=== PATIENT | female | born 1985 | race Caucasian/White ===

== ENCOUNTER 2016-09-15 09:45 | Emergency (ER) | payer MEDICAID, OTHER ==
[~2016-09-15] VITALS: Wt 85.0 kg
[~2016-09-15 09:45] MED LIST: AMO500 PO; CIPR500T4 PO; EXCEDRIN; HYDR-3498 PO; HYDR2TAB36 PO; METR500T PO; ONDA-43 PO; ONDA4TAB35 PO
[2016-09-15] MEDS ORDERED: ONDANSETRON (ODT) 4 MG TAB ODT STA (10:38)
--- NOTE | 2016-09-15 10:41 | ERD ---
ER Documentation Chief Complaint Date/Time DATE: 09/15/16 TIME: 10:39 Chief Complaint LEFT ANKLE PAIN, SWELLING/INJURY, HAPPENED 1 WEEK AGO HPI 31-year-old female presents with left medial ankle pain from an injury 2 weeks ago, radiating diffusely to the posterior aspect. She rates her pain a 10 out of 10, not improving with leftover [place] which she has been taking at home. Elevating and icing the area seems to help, however because of the swelling she is comes emergency department today, this is her first evaluation. She denies any fevers or chills with this. ROS All systems reviewed and are negative except as per history of present illness. Medications Home Meds Active Scripts Ibuprofen* (Motrin*) 600 Mg Tab, 600 MG PO Q6, #30 TAB Prov:HESHAM EVERETT PA-C 09/15/16 Hydrocodone/Acetaminophen ([place] 5-325 Tablet) 1 Each Tablet, 1 TAB PO Q6H Y for PAIN, #20 TAB Prov:HESHAM EVERETT PA-C 09/15/16 Ondansetron Hcl* (Zofran*) 4 Mg Tab, 4 MG PO Q6H Y for NAUSEA AND OR VOMITING, # 10 TAB Prov:JOBY CHU S. 12/14/15 Hydromorphone Hcl* (Dilaudid*) 2 Mg Tablet, 2 MG PO Q4H Y for PAIN, #14 TAB Prov:JOBY CHU S. 12/14/15 Ondansetron Hcl* (Zofran* ODT) 4 mg -ODT Tab.disper, 4 MG PO Q8 Y for NAUSEA AND /OR VOMITING, #30 TAB Prov:RAFAELA BENJAMIN NP 12/29/14 Hydrocodone Bit-Acetaminophen* ([place]*) 5-325 Mg Tab, 1 TAB PO Q6 Y for PAIN, # 20 TAB Prov:RAFAELA BENJAMIN NP 12/29/14 Metronidazole* (Flagyl*) 500 Mg Tablet, 500 MG PO TID for 10 Days, TAB Prov:RAFAELA BENJAMIN NP 12/29/14 Ciprofloxacin Hcl* (Ciprofloxacin Hcl*) 500 Mg Tablet, 500 MG PO BID for 10 Days , TAB Prov:RAFAELA BENJAMIN NP 12/29/14 Reported Medications Amoxicillin* (Amoxicillin*) Unknown Strength Cap, PO TID for 7 Days, CAP 12/29/14 [Excedrin] No Conflict Check 04/01/10 Allergies Allergies: Coded Allergies: No Known Drug Allergies (Verified Allergy, Mild, 10/03/13) PMhx/Soc History of Surgery: Yes (chelecystectomy, x 2 ) Anesthesia Reaction: No Hx Neurological Disorder: No Hx Respiratory Disorders: Yes (asthma, migraine) Hx Cardiac Disorders: No Hx Psychiatric Problems: No Hx Miscellaneous Medical Probl: No Hx Alcohol Use: Yes (occassional ) Hx Substance Use: No Hx Tobacco Use: Yes Smoking Status: Current every day smoker Physical Exam Vitals Vital Signs Date Time Temp Pulse Resp B/P Pulse Ox O2 Delivery O2 Flow Rate FiO2 09/15/16 09:49 97.6 97 18 123/81 99 Physical Exam General: Well-developed, well-nourished. The patient appears in no acute distress. HEENT: Head is normocephalic, atraumatic. No scleral icterus. Neck: Supple. Nontender. Lungs: Clear to auscultation. Normal air movement. Heart: Regular rate and rhythm. S1 and S2 are normal. No murmurs, gallops, or rubs. Abdomen: Nondistended. Extremities: Left medial foot, and ankle are diffusely tender with ecchymosis, she has bruising that goes to the posterior ankle, she is able to partially dorsiflex and flex her ankle. Pulses 2+ bilaterally. Louie intact. Neurologic: Alert and oriented 3. No focal deficits. Normal speech and gait. Skin: Normal turgor. No rash or lesions. Results 24 hrs Current Medications Medications (Trade) Dose Ordered Sig/Juanita Route PRN Reason Start Time Stop Time Status Last Admin Dose Admin Acetaminophen/ Hydrocodone Bitart ([place] (10/325)) 1 tab ONCE ONCE PO 09/15/16 11:00 09/15/16 11:01 DC 09/15/16 10:58 Ondansetron HCl (Zofran Odt) 4 mg ONCE STAT ODT 09/15/16 10:38 09/15/16 10:39 DC 09/15/16 10:58 Ibuprofen (Motrin) 800 mg ONCE ONCE PO 09/15/16 13:00 09/15/16 13:01 DIAGNOSTIC IMAGING REPORT Patient: JERICHO WOODS : 1985 Age: 31 Sex: F MR #: [id number] DOS: 09/15/16 1038 Ordering MD: HESHAM EVERETT PA-C Location: [facility] Room/Bed: PROCEDURE: XR Foot 3 Views. CLINICAL INDICATION: Left foot pain and trauma. TECHNIQUE: AP, oblique and lateral views of the left foot were obtained. The images were reviewed on a PACS workstation. COMPARISON: Ankle x-ray September 15, 2016 FINDINGS: Severely displaced fracture through the medial malleolus continues to be identified. The remaining osseous structures appear intact. No destructive bony lesions are identified. Interosseous spaces are normal. Soft tissues surrounding the foot appear unremarkable. IMPRESSION: Unchanged fracture through the medial malleolus of the ankle. No visualized additional traumatic injury. If there is high clinical suspicion for additional traumatic injury, further evaluation with CT should be considered. RPTAT: AA .Ghassan Hitchcock MD, MD Date Time Electronically viewed and signed by .Ghassan Hitchcock MD, on 09/15/2016 11:09 .P/ CC: HESHAM EVERETT PA-C DIAGNOSTIC IMAGING REPORT Patient: JERICHO WOODS : 1985 Age: 31 Sex: F MR #: [id number] DOS: 09/15/16 0958 Ordering MD: HESHAM EVERETT PA-C Location: [facility] Room/Bed: PROCEDURE: XR Ankle. CLINICAL INDICATION: Left ankle pain following injury TECHNIQUE: 3 views of the left ankle were performed. COMPARISON: None. FINDINGS: There is a fracture of the medial malleolus with medial displacement and rotation of the fracture fragment. The ankle mortise is intact. No periostitis or osteochondral lesion is identified. There is diffuse soft tissue edema. IMPRESSION: Fracture of the medial malleolus with medial displacement and rotation of the distal fracture fragment. RPTAT: HH .Pat Kerr MD, MD Date Time Electronically viewed and signed by .Pat Kerr MD, on 09/15/2016 10 :55 .G/ CC: HESHAM EVERETT PA-C Procedures/MDM ED course: Patient was given [place] 103 25 mg, Zofran 4 mg ODT. Patient's left ankle was placed in a posterior ankle splint. Splint Assessment : Neurovascularly intact post splint placement with good fit. She was advised to use crutches and remain nonweightbearing. Patient presents with old crutches which she feels comfortable using at this time. Medical decision making: This 31-year-old female presents with left medial ankle left foot injury, there is an avulsion fracture of the medial malleolus, she has inserted distally neurovascular intact and Achilles is intact. She was placed in a posterior ankle splint and was advised to follow-up with orthopedics in the next 1-2 days. The case was reviewed and discussed with Dr. Perry who agrees with the plan of care including labs, treatment, and advanced imaging as appropriate. Departure Diagnosis: Primary Impression: Ankle fracture, left Condition: Good HESHAM EVERETT PA-C Sep 15, 2016 10:41
--- NOTE | 2016-09-15 10:55 | RADRPT ---
PROCEDURE: XR Ankle. CLINICAL INDICATION: Left ankle pain following injury TECHNIQUE: 3 views of the left ankle were performed. COMPARISON: None. FINDINGS: There is a fracture of the medial malleolus with medial displacement and rotation of the fracture fr agment. The ankle mortise is intact. No periostitis or osteochondral lesion is identified. There i s diffuse soft tissue edema. IMPRESSION: Fracture of the medial malleolus with medial displacement and rotation of the distal fracture fragme nt. RPTAT: HH .Pat Kerr MD, MD Date Time Electronically viewed and signed by .Pat Kerr MD, on 09/15/2016 10:55 .G/
[2016-09-15] MEDS ORDERED: HYDROCODONE/APAP (10/325) TAB PO ONE (11:00)
--- NOTE | 2016-09-15 11:09 | RADRPT ---
PROCEDURE: XR Foot 3 Views. CLINICAL INDICATION: Left foot pain and trauma. TECHNIQUE: AP, oblique and lateral views of the left foot were obtained. The images were reviewed on a PACS workstation. COMPARISON: Ankle x-ray September 15, 2016 FINDINGS: Severely displaced fracture through the medial malleolus continues to be identified. The remaining osseous structures appear intact. No destructive bony lesions are identified. Interosseous spaces are normal. Soft tissues surrounding the foot appear unremarkable. IMPRESSION: Unchanged fracture through the medial malleolus of the ankle. No visualized additional traumatic injury. If there is high clinical suspicion for additional traumatic injury, further evaluation with CT shou ld be considered. RPTAT: AA .Ghassan Hitchcock MD, MD Date Time Electronically viewed and signed by .Ghassan Hitchcock MD, on 09/15/2016 11:09 .P/
[2016-09-15] MEDS ORDERED: IBUP-1542 PO (11:42)
[2016-09-15] MEDS ORDERED: HYDR-906 PO (11:42)
[2016-09-15] MEDS ORDERED: IBUPROFEN 800 MG TAB PO ONE (13:00)
== END 2016-09-15 13:56 | disposition home or self-care (01) ==
LOC: FTE 09:45
DX: S82.52XA Displaced fracture of medial malleolus of left tibia, initial encounter for closed fracture (principal); J45.909 Unspecified asthma, uncomplicated; F17.210 Nicotine dependence, cigarettes, uncomplicated; X58.XXXA Exposure to other specified factors, initial encounter; Y92.9 Unspecified place or not applicable
CPT/HCPCS: 29515; 73610; 73630; Z7502; Z7610

== ENCOUNTER 2016-11-30 08:42 | Emergency (ER) | payer OTHER ==
[~2016-11-30] VITALS: Ht 149.9 cm; Wt 86.0 kg
[~2016-11-30 08:42] MED LIST changes: -AMO500 PO; +AMOX500C2 PO; +HYDR-906 PO; +IBUP-1542 PO
[2016-11-30 08:44] VITALS: Ht 149.9 cm; Wt 86.0 kg
[2016-11-30] MEDS ORDERED: CEPH-443 PO (09:15)
[2016-11-30] MEDS ORDERED: SULF1TAB31 PO (09:15)
--- NOTE | 2016-11-30 12:35 | ERD ---
ER Documentation Chief Complaint Chief Complaint LT AC ABSCESS FROM DRUG ABUSE, LT ANKLE PAIN HPI This is a 31 year old female,with past medical history for drug abuse, presenting to ER for abscess to left inner elbow for 2 days. Patient states she injected heroin and meth into her left arm 2 days ago. Patient is now having pain and swelling to left antecubital area. Patient denies any drainage. No redness or warmth. No fevers or chills. Patient also has an old medial malleolar fracture from September and continues to have pain. No reinjury or trauma to area. No numbness or tingling. No loss of sensation. No weakness. Patient states she has not been to see her primary care provider or practice support specialist. Patient lost CD with images of ankle and foot x-rays. Patient requesting copy of CD and orthopedic referral. ROS All systems reviewed and are negative except as per history of present illness. Medications Home Meds Active Scripts Cephalexin* (Keflex*) 500 Mg Capsule, 500 MG PO QID for 5 Days, CAP Prov:JOHAN TERAN NP 11/30/16 Sulfamethoxazole/Trimethoprim* (Bactrim Ds* Tablet) 1 Each Tablet, 1 TAB PO BID , #14 TAB Prov:JOHAN TERAN NP 11/30/16 Ibuprofen* (Motrin*) 600 Mg Tab, 600 MG PO Q6, #30 TAB Prov:HESHAM EVERETT PA-C 09/15/16 Hydrocodone/Acetaminophen ([place] 5-325 Tablet) 1 Each Tablet, 1 TAB PO Q6H Y for PAIN, #20 TAB Prov:HESHAM EVERETT PA-C 09/15/16 Ondansetron Hcl* (Zofran*) 4 Mg Tab, 4 MG PO Q6H Y for NAUSEA AND OR VOMITING, # 10 TAB Prov:JOBY CHU 12/14/15 Hydromorphone Hcl* (Dilaudid*) 2 Mg Tablet, 2 MG PO Q4H Y for PAIN, #14 TAB Prov:JOBY CHU 12/14/15 Ondansetron Hcl* (Zofran* ODT) 4 mg -ODT Tab.disper, 4 MG PO Q8 Y for NAUSEA AND /OR VOMITING, #30 TAB Prov:RAFAELA BENJAMIN NP 12/29/14 Hydrocodone Bit-Acetaminophen* ([place]*) 5-325 Mg Tab, 1 TAB PO Q6 Y for PAIN, # 20 TAB Prov:RAFAELA BENJAMIN NP 12/29/14 Metronidazole* (Flagyl*) 500 Mg Tablet, 500 MG PO TID for 10 Days, TAB Prov:RAFAELA BENJAMIN NP 12/29/14 Ciprofloxacin Hcl* (Ciprofloxacin Hcl*) 500 Mg Tablet, 500 MG PO BID for 10 Days , TAB Prov:RAFAELA BENJAMIN BOARD LAYER 12/29/14 Reported Medications Amoxicillin* (Amoxicillin*) Unknown Strength Cap, PO TID for 7 Days, CAP 12/29/14 [Excedrin] No Conflict Check 04/01/10 Allergies Allergies: Coded Allergies: No Known Drug Allergies (Verified Allergy, Mild, 10/03/13) PMhx/Soc History of Surgery: Yes (chelecystectomy, x 2 ) Anesthesia Reaction: No Hx Neurological Disorder: No Hx Respiratory Disorders: Yes (asthma, migraine) Hx Cardiac Disorders: No Hx Psychiatric Problems: No Hx Miscellaneous Medical Probl: No Hx Alcohol Use: Yes (occassional ) Hx Substance Use: Yes (crystal meth) Hx Tobacco Use: Yes Smoking Status: Light tobacco smoker Physical Exam Vitals Vital Signs Date Time Temp Pulse Resp B/P Pulse Ox O2 Delivery O2 Flow Rate FiO2 11/30/16 08:44 97.6 98 18 121/69 99 Physical Exam Const: Alert, crying Head: Atraumatic Eyes: Normal Conjunctiva ENT: Normal External Ears, Nose and Mouth. Neck: Full range of motion..~ No meningismus. Resp: Clear to auscultation bilaterally Cardio: Regular rate and rhythm, no murmurs Abd: Soft, non tender, non distended. Normal bowel sounds Skin: 1cm x 1cm raised lesion to left antecubital region. No lymphatic streaking. no drainage. no fluctuance. No surrounding erythema or warmth. Back: No midline or flank tenderness Ext: No cyanosis, or edema Neur: Awake and alert Psych: Normal Mood and Affect Procedures/MDM MDM: This is a 31-year-old female presenting to emerge department for abscess to left antecubital region 2 days. There is no fluctuance on physical exam. No surrounding erythema or warmth. No lymphatic streaking. No indication to perform incision and drainage. Patient is neurovascularly intact. Sensation is fully intact. Patient will be given prescription for Bactrim and Keflex. Patient also requesting a CD images of x-rays done in 09/2016. Patient is appropriate for outpatient management only given prescription for Bactrim and Keflex. Patient also provided with CD images and report of ankle and foot x-rays from 09/2016. Instructed patient to follow-up with orthopedic physician. Instructed patient to return to the ED in 2 days for wound check. Resources provided. Return to ED for any high fever, chest pain, difficulty breathing, shortness breath, wheezing, vomiting, diarrhea, abdominal pain or any new or worsening symptoms. Patient verbalizes understanding. All questions answered at discharge. Disclaimer: Inadvertent spelling and grammatical errors are likely due to EHR/ dictation software use and do not reflect on the overall quality of patient care. Also, please note that the electronic time recorded on this note does not necessarily reflect the actual time of the patient encounter. Departure Diagnosis: Primary Impression: Abscess Condition: Stable Patient Instructions: Abscess, Antiobiotic Treatment Only Referrals: [facility] YOU HAVE RECEIVED A MEDICAL SCREENING EXAM AND THE RESULTS INDICATE THAT YOU DO NOT HAVE A CONDITION THAT REQUIRES URGENT TREATMENT IN THE EMERGENCY DEPARTMENT. FURTHER EVALUATION AND TREATMENT OF YOUR CONDITION CAN WAIT UNTIL YOU ARE SEEN IN YOUR DOCTORS OFFICE WITHIN THE NEXT 1-2 DAYS. IT IS YOUR RESPONSIBILITY TO MAKE AN APPOINTMENT FOR FOLOW-UP CARE. IF YOU HAVE A PRIMARY DOCTOR --you should call your primary doctor and schedule an appointment IF YOU DO NOT HAVE A PRIMARY DOCTOR YOU CAN CALL OUR PHYSICIAN REFERRAL HOTLINE AT IF YOU CAN NOT AFFORD TO SEE A PHYSICIAN YOU CAN CHOSE FROM THE FOLLOWING [facility] [address] [facility] [address] [facility]. [facility] [address] [facility] [address] [facility] [address] [facility]. [facility]. [address] [facility] YOU HAVE RECEIVED A MEDICAL SCREENING EXAM AND THE RESULTS INDICATE THAT YOU DO NOT HAVE A CONDITION THAT REQUIRES URGENT TREATMENT IN THE EMERGENCY DEPARTMENT. FURTHER EVALUATION AND TREATMENT OF YOUR CONDITION CAN WAIT UNTIL YOU ARE SEEN IN YOUR DOCTORS OFFICE WITHIN THE NEXT 1-2 DAYS. IT IS YOUR RESPONSIBILITY TO MAKE AN APPOINTMENT FOR FOLOW-UP CARE. IF YOU HAVE A PRIMARY DOCTOR --you should call your primary doctor and schedule and appointment IF YOU DO NOT HAVE A PRIMARY DOCTOR YOU CAN CALL OUR PHYSICIAN REFERRAL HOTLINE AT . IF YOU CAN NOT AFFORD TO SEE A PHYSICIAN YOU CAN CHOSE FROM THE FOLLOWING [facility] INSTITUTIONS: [facility] [address] [place] [address] [facility] [address] [place] [address] [facility] + [facility] [address] [place] [address] [facility] 7 a.m.- 11 p.m. Every Day of the Week NO APPOINTMENT OR AUTHORIZATION NEEDED Additional Instructions: Return to ED in 2 days for wound check. Use warm compress to left arm for 20 min 3-4 times per day. Return to ED for any high fever, chest pain, difficulty breathing, shortness breath, wheezing, vomiting, diarrhea, abdominal pain or any new or worsening symptoms. Call your primary care doctor TOMORROW for an appointment during the next 2-3 days.See the doctor sooner or return here if your condition worsens before your appointment time. JOHAN TERAN NP Nov 30, 2016 12:35
== END 2016-11-30 10:06 | disposition home or self-care (01) ==
LOC: FTE 08:42
DX: L02.414 Cutaneous abscess of left upper limb (principal); J45.909 Unspecified asthma, uncomplicated; F17.210 Nicotine dependence, cigarettes, uncomplicated
CPT/HCPCS: 99284

== ENCOUNTER 2017-01-03 11:14 | Emergency (ER) | payer OTHER ==
[~2017-01-03] VITALS: Ht 149.9 cm; Wt 86.0 kg
[~2017-01-03 11:14] MED LIST changes: +CEPH-443 PO; +SULF1TAB31 PO
[2017-01-03 11:27] VITALS: Ht 149.9 cm; Wt 86.0 kg
[2017-01-03] MEDS ORDERED: ALBUTEROL 0.083% (NEB) 2.5 MG/3 ML AMP HHN STA (12:33)
--- NOTE | 2017-01-03 12:44 | ERD ---
ER Documentation Chief Complaint Chief Complaint LEFT EAR ACHE COUGH R CALF PAIN AND CHEST TIGHTNESS HPI 30-year-old female who is obese, has a history of smoking, as well as asthma presents with cough, bilateral ear pain, chest pain as well as right leg pain. Patient complains of pleuritic chest pain, with cough ongoing for a week, she is also had right calf pain over the last 2 days. She has a history of asthma, but states that she lost her inhaler. She describes as a cramping like sensation that is localized to the joão she does not take any control, denies any history of recent travel or history of PE or DVT. She denies any fevers chills. ROS All systems reviewed and are negative except as per history of present illness. Medications Home Meds Active Scripts Albuterol Sulfate* (Proair HFA*) 8.5 Gm Hfa.aer.ad, 2 PUFF INH Q4, #1 INHALER Prov:HESHAM EVERETT PA-C 01/03/17 Ibuprofen* (Motrin*) 600 Mg Tab, 600 MG PO Q6, #30 TAB Prov:HESHAM EVERETT PA-C 01/03/17 Azithromycin* (Zithromax*) 250 Mg Tablet, 250 MG PO .ZPACK DIRECTED, #6 TAB TAKE 500 MG (2 TABS) THE FIRST DAY THEN 250 MG (1 TAB) DAYS 2-5 Prov:HESHAM EVERETT PA-C 01/03/17 Cephalexin* (Keflex*) 500 Mg Capsule, 500 MG PO QID for 5 Days, CAP Prov:JOHAN TERAN NP 11/30/16 Sulfamethoxazole/Trimethoprim* (Bactrim Ds* Tablet) 1 Each Tablet, 1 TAB PO BID , #14 TAB Prov:JOHAN TERAN NP 11/30/16 Ibuprofen* (Motrin*) 600 Mg Tab, 600 MG PO Q6, #30 TAB Prov:HESHAM EVERETT PA-C 09/15/16 Hydrocodone/Acetaminophen ([place] 5-325 Tablet) 1 Each Tablet, 1 TAB PO Q6H Y for PAIN, #20 TAB Prov:HESHAM EVERETT PA-C 09/15/16 Ondansetron Hcl* (Zofran*) 4 Mg Tab, 4 MG PO Q6H Y for NAUSEA AND OR VOMITING, # 10 TAB Prov:JOBY CHU 12/14/15 Hydromorphone Hcl* (Dilaudid*) 2 Mg Tablet, 2 MG PO Q4H Y for PAIN, #14 TAB Prov:JOBY CHU. 12/14/15 Ondansetron Hcl* (Zofran* ODT) 4 mg -ODT Tab.disper, 4 MG PO Q8 Y for NAUSEA AND /OR VOMITING, #30 TAB Prov:RAFAELA BENJAMIN NP 12/29/14 Hydrocodone Bit-Acetaminophen* ([place]*) 5-325 Mg Tab, 1 TAB PO Q6 Y for PAIN, # 20 TAB Prov:RAFAELA BENJAMIN NP 12/29/14 Metronidazole* (Flagyl*) 500 Mg Tablet, 500 MG PO TID for 10 Days, TAB Prov:RAFAELA BENJAMIN [employer] 12/29/14 Ciprofloxacin Hcl* (Ciprofloxacin Hcl*) 500 Mg Tablet, 500 MG PO BID for 10 Days , TAB Prov:RAFAELA BENJAMIN NP 12/29/14 Reported Medications Amoxicillin* (Amoxicillin*) Unknown Strength Cap, PO TID for 7 Days, CAP 12/29/14 [Excedrin] No Conflict Check 04/01/10 Allergies Allergies: Coded Allergies: No Known Drug Allergies (Verified Allergy, Mild, 10/03/13) PMhx/Soc History of Surgery: Yes (chelecystectomy, x 2 ) Anesthesia Reaction: No Hx Neurological Disorder: No Hx Respiratory Disorders: Yes (asthma, migraine) Hx Cardiac Disorders: No Hx Psychiatric Problems: No Hx Miscellaneous Medical Probl: No Hx Alcohol Use: Yes (occassional ) Hx Substance Use: Yes (crystal meth) Hx Tobacco Use: Yes Smoking Status: Current every day smoker Physical Exam Vitals Vital Signs Date Time Temp Pulse Resp B/P Pulse Ox O2 Delivery O2 Flow Rate FiO2 01/03/17 13:04 116 18 21 01/03/17 11:27 98.0 116 18 109/61 98 Physical Exam General: Well-developed, well-nourished. The patient appears in no acute distress. HEENT: Head is normocephalic, atraumatic. No scleral icterus. TMs are erythematous, bulging. Neck: Supple. Nontender. Lungs: Clear to auscultation. Normal air movement. Persistent dry cough noted on examination. Heart: Regular rate and rhythm. S1 and S2 are normal. No murmurs, gallops, or rubs. Abdomen: Soft, nontender, nondistended. Bowel sounds are normoactive. Extremities: There is right-sided calf tenderness, no warmth or erythema. Neurologic: Alert and oriented 3. No focal deficits. Skin: Normal turgor. No rash or lesions. Result Diagram: 01/03/17 1250 01/03/17 1250 Results 24 hrs Laboratory Tests Test 01/03/17 12:50 White Blood Count 10.010^3/ul Red Blood Count 4.8010^6/ul Hemoglobin 11.5g/dl Hematocrit 36.8% Mean Corpuscular Volume 76.7fl Mean Corpuscular Hemoglobin 24.0pg Mean Corpuscular Hemoglobin Concent 31.3g/dl Red Cell Distribution Width 14.7% Platelet Count 07371^3/UL Mean Platelet Volume 9.3fl Neutrophils % 71.2% Lymphocytes % 19.3% Monocytes % 6.2% Eosinophils % 2.8% Basophils % 0.2% Nucleated Red Blood Cells % 0.0/100WBC Neutrophils # 7.110^3/ul Lymphocytes # 1.910^3/ul Monocytes # 0.610^3/ul Eosinophils # 0.310^3/ul Basophils # 0.010^3/ul Nucleated Red Blood Cells # 0.010^3/ul D-Dimer 663.85ng/ml D-Dimer Comment Sodium Level 142mmol/L Potassium Level 4.1mmol/L Chloride Level 104mmol/L Carbon Dioxide Level 26mmol/L Anion Gap 16 Blood Urea Nitrogen 15mg/dl Creatinine 0.81mg/dl Glucose Level 108mg/dl Calcium Level 9.3mg/dl Current Medications Medications (Trade) Dose Ordered Sig/Juanita Route PRN Reason Start Time Stop Time Status Last Admin Dose Admin Albuterol (Proventil 0.083% (Neb)) 5 mg ONCE STAT HHN 01/03/17 12:33 01/03/17 12:35 DC 01/03/17 13:12 Ibuprofen (Motrin) 600 mg ONCE ONCE PO 01/03/17 13:30 01/03/17 13:31 DC 01/03/17 13:43 IV Flush 10 ml 10 ml STK-MED ONCE .ROUTE 01/03/17 14:34 01/03/17 14:35 DC 01/03/17 15:02 Sodium Chloride 100 ml @ ud STK-MED ONCE .ROUTE 01/03/17 14:34 01/03/17 14:35 DC 01/03/17 15:04 Iohexol (Omnipaque) 100 ml @ ud STK-MED ONCE .ROUTE 01/03/17 14:34 01/03/17 14:35 DC 01/03/17 15:02 Iohexol (Omnipaque 350mg/ ml) 50 ml STK-MED ONCE .ROUTE 01/03/17 14:34 01/03/17 14:35 DC 01/03/17 15:04 12-lead EKG(interpreted by supervising physician): Dr. Perez Rate/Rhythm: Normal Sinus Rhythm, rate of 116 QRS, ST, T-waves: No changes consistent w/ acute ischemia, no intervals, no dysrhythmias, no ectopy Impression: No evidence of ischemia or arrhythmia DIAGNOSTIC IMAGING REPORT Patient: JERICHO WOODS : 1985 Age: 31 Sex: F MR #: [id number] DOS: 01/03/17 1233 Ordering MD: HESHAM EVERETT PA-C Location: E Room/Bed: PROCEDURE: Chest x-ray CLINICAL INDICATION: Abdominal pain TECHNIQUE: Chest single view COMPARISON: None FINDINGS: The heart is normal in size. The pulmonary vessels are normal in caliber. The lungs are clear. The costophrenic angles are sharp. The visualized bony thorax is unremarkable. IMPRESSION: No acute cardiopulmonary disease. Low lung volumes RPTAT: HH .Bertrand Leon MD, Date Time Electronically viewed and signed by .Bertrand Leon MD, on 01/03/2017 13:10 .W/ CC: HESHAM EVERETT PA-C DIAGNOSTIC IMAGING REPORT Patient: JERICHO WOODS : 1985 Age: 31 Sex: F [id number] DOS: 01/03/17 1335 Ordering MD: HESHAM EVERETT PA-C Location: [facility] Room/Bed: PROCEDURE: CTA Chest and pulmonary angiogram. CLINICAL INDICATION: Chest pain and shortness of breath. TECHNIQUE: CT scan of the chest and CT pulmonary angiogram was performed on a multidetector high-resolution CT scanner. High-resolution thin slice coronal and sagittal imaging was obtained from the axial source images. 3-D volumetric rendered post processing was performed as well. The patient was examined following the uncomplicated intravenous administration of 125 cc of on the day 360. The images were reviewed on a PACS workstation. The total exam CTDI equals 40 3 mGy, and the total exam DLP equals 614 mGy-cm. One or more of the following dose reduction techniques were used: Automated exposure control. Adjustment of the mA and/or kV according to patient size. Use of iterative reconstruction technique. DICOM images are available. COMPARISON: No priors for comparison FINDINGS: CT chest: The trachea is midline. Thyroid gland is unremarkable. Several shoddy axillary lymph nodes are noted. No significant mediastinal or hilar lymphadenopathy. The aorta is within limits. No evidence of aneurysmal dilatation or dissection. The pulmonary arterial trunk is in the upper limits of normal size. No gross abnormal filling defects in the main pulmonary and its segmental branches. Heart size is within normal limits. There is no significant pericardial effusion. The lungs are clear. No focal air space disease/consolidation. No evidence of pleural effusions. Airways are patent. The visualized upper abdominal organs demonstrates post cholecystectomy changes. Common bile duct is within limits. Remaining upper abdominal organs appear to be within normal limits. The visualized osseous structures appears to within normal limits. The sternum is within normal limits. IMPRESSION: 1. No evidence of acute pulmonary emboli. No evidence of aortic aneurysm or dissection. 2. The lungs are clear. No focal air space disease/consolidation. No pleural effusions. RPTAT: AARR Physician Amanda Date Time Electronically viewed and signed by Physician Amanda on 01/03/2017 15:07 JL/ CC: HESHAM EVERETT PA-C Procedures/MDM 12-lead EKG(interpreted by supervising physician): Dr. Perez Rate/Rhythm: Sinus tachycardia with a rate of 106 QRS, ST, T-waves: No changes consistent w/ acute ischemia, no intervals, no dysrhythmias, no ectopy Impression: No evidence of ischemia or arrhythmia Course: Patient was given albuterol 5 mg neb breathing treatment. Medical decision makin-year-old female comes in with chest pain, shortness breath, cough and right leg pain, this patient has been complaining of chest pain, cough and the CT pulmonary angiogram shows no evidence of pulmonary embolus. Chest x-ray there is no evidence of pneumonia. She does have leg pain and multiple attempts are made by ultrasound to do the study but the patient is currently wearing leggings and she is refusing to get undressed she states that she does not want the study to go past her calf. I have explained that the full study should be of the whole leg, she states that she would like to leave at this time and is refusing to do the ultrasound entirely. The patient will leave AGAINST MEDICAL ADVICE time and will sign the AMA form. He was informed of the risks of a DVT, including pulmonary embolus, infection, cardiovascular injury, which she is aware but states that she does not want to do the ultrasound and is leaving AMA. Upon discharge, the patient asked why she was not getting a prescription for [place], she states that she has history of chronic back pain, this was not her chief complaint today, I have also discussed with her our pain policy emergency department, I offered her pain medication here including a as needed [place] but we would not be able to prescribe her medication for this. We will be treating her bronchitis with cough medication including antibiotics and ibuprofen and inhaler due to her history of asthma. The patient did sign against AMA but she left the emergency department with her IV in her arm, and [employer] was then called and notified. Departure Diagnosis: Primary Impression: Cough Additional Impressions: Left against medical advice Headache Leg pain Condition: Good HESHAM EVERETT PA-C Jan 03, 2017 12:44
[2017-01-03 13:00] LABS: BASOPHILS % 0.2 % (0.0-2.0); EOSINOPHILS # 0.3 10^3/ul (0.0-0.5); EOSINOPHILS % 2.8 % (0.0-7.0); HEMATOCRIT 36.8 % (37.0-47.0); HEMOGLOBIN 11.5 g/dl (12.0-16.0); LYMPHOCYTES # 1.9 10^3/ul (0.8-2.9); LYMPHOCYTES % 19.3 % (15.0-51.0); MEAN CORPUSCULAR HGB CONC 31.3 g/dl (32.0-37.0); MEAN CORPUSCULAR VOLUME 76.7 fl (82.0-101.0); MEAN PLATELET VOLUME 9.3 fl (7.4-10.4); MONOCYTE # 0.6 10^3/ul (0.3-0.9); MONOCYTES % 6.2 % (0.0-11.0); NEUTROPHIL # 7.1 10^3/ul (1.6-7.5); NEUTROPHILS % 71.2 % (39.0-77.0); PLATELET COUNT 398 10^3/UL (140-415); RED CELL DISTRIBUTION WIDTH 14.7 % (11.5-14.5)
--- NOTE | 2017-01-03 13:12 | RADRPT ---
PROCEDURE: Chest x-ray CLINICAL INDICATION: Abdominal pain TECHNIQUE: Chest single view COMPARISON: None FINDINGS: The heart is normal in size. The pulmonary vessels are normal in caliber. The lungs are clear. Th e costophrenic angles are sharp. The visualized bony thorax is unremarkable. IMPRESSION: No acute cardiopulmonary disease. Low lung volumes RPTAT: HH .Bertrand Leon MD, Date Time Electronically viewed and signed by .Bertrand Leon MD, on 01/03/2017 13:10 .W/
[2017-01-03 13:22] LABS: CALCIUM 9.3 mg/dl (8.4-10.2); CREATININE 0.81 mg/dl (0.44-1.00); POTASSIUM 4.1 mmol/L (3.5-5.1)
[2017-01-03 13:26] LABS: D-DIMER 663.85 ng/ml (<460)
[2017-01-03] MEDS ORDERED: IBUPROFEN 600 MG TAB PO ONE (13:30)
[2017-01-03] MEDS ORDERED: IOHEXOL 350MG/ML 50 ML BTL ONE (14:34)
[2017-01-03] MEDS ORDERED: IOHEXOL 100 ML ONE (14:34)
[2017-01-03] MEDS ORDERED: SOD CHLORIDE 0.9% 100 ML ONE (14:34)
--- NOTE | 2017-01-03 15:07 | RADRPT ---
PROCEDURE: CTA Chest and pulmonary angiogram. CLINICAL INDICATION: Chest pain and shortness of breath. TECHNIQUE: CT scan of the chest and CT pulmonary angiogram was performed on a multidetector high-r esolution CT scanner. High-resolution thin slice coronal and sagittal imaging was obtained from the axial source images. 3-D volumetric rendered post processing was performed as well. The patient w as examined following the uncomplicated intravenous administration of 125 cc of on the day 360. The images were reviewed on a PACS workstation. The total exam CTDI equals 40 3 mGy, and the total exam DLP equals 614 mGy-cm. One or more of the following dose reduction techniques were used: Automated exposure control. Adjustment of the mA and/or kV according to patient size. Use of iterative reconstruction technique. DICOM images are available. COMPARISON: No priors for comparison FINDINGS: CT chest: The trachea is midline. Thyroid gland is unremarkable. Several shoddy axillary lymph nodes are noted . No significant mediastinal or hilar lymphadenopathy. The aorta is within limits. No evidence of aneurysmal dilatation or dissection. The pulmonary arteri al trunk is in the upper limits of normal size. No gross abnormal filling defects in the main pulmon gisell and its segmental branches. Heart size is within normal limits. There is no significant pericard ial effusion. The lungs are clear. No focal air space disease/consolidation. No evidence of pleural effusions. Air ways are patent. The visualized upper abdominal organs demonstrates post cholecystectomy changes. Common bile duct is within limits. Remaining upper abdominal organs appear to be within normal limits. The visualized osseous structures appears to within normal limits. The sternum is within normal limi ts. IMPRESSION: 1. No evidence of acute pulmonary emboli. No evidence of aortic aneurysm or dissection. 2. The lungs are clear. No focal air space disease/consolidation. No pleural effusions. RPTAT: AARR Physician Amanda Date Time Electronically viewed and signed by Physician Amanda on 01/03/2017 15:07 PHILIPP/
[2017-01-03] MEDS ORDERED: AZIT250T94 PO (15:15)
[2017-01-03] MEDS ORDERED: ALBU8.5H3 INH (15:15)
[2017-01-03] MEDS ORDERED: IBUP-1542 PO (15:15)
== END 2017-01-03 17:41 | disposition left against medical advice (07) ==
LOC: FTE 11:14
DX: R05 Cough (principal); R51 Headache; M79.604 Pain in right leg; J45.909 Unspecified asthma, uncomplicated; F17.210 Nicotine dependence, cigarettes, uncomplicated
CPT/HCPCS: 71010; 71275; 80048; 85025; 85378; 93005; 94664; Q9967; Z7502; Z7610

== ENCOUNTER 2018-05-11 02:26 | Emergency (ER) | payer OTHER ==
[~2018-05-11] VITALS: Ht 147.3 cm; Wt 81.4 kg
[~2018-05-11 02:26] MED LIST changes: +ALBU8.5H8 INH; +AZIT250T PO; +HYDR-4011 PO; -HYDR-906 PO; -ONDA-43 PO; +ONDA4TAB13 PO
[2018-05-11 02:32] VITALS: Ht 147.3 cm; Wt 81.4 kg
--- NOTE | 2018-05-11 02:33 | ERD ---
ER Documentation Chief Complaint Chief Complaint sob HPI The patient is a 32-year-old female, presenting to the ER because of acute dyspnea for 1 day, had similar symptoms previously from asthma attack. She denies fever, chills, neck pain, chest pain, abdominal pain, vomiting, dysuria, diarrhea. She smokes, drinks socially, denies illicit drug Past medical history: Asthma, migraine Past surgical history: Cholecystectomy, ROS All systems reviewed and are negative except as per history of present illness. Medications Home Meds Active Scripts Prednisone* (Prednisone*) 20 Mg Tab, 60 MG PO DAILY for 5 Days, TAB Prov:TAN SMALL MD 05/11/18 Albuterol Sulfate* (Proair HFA*) 8.5 Gm Hfa.aer.ad, 2 PUFF INH Q4, #1 INHALER Prov:TAN SMALL MD 05/11/18 Salmeterol Xinaf-Fluticasone* (Advair HFA*) 45/212 Aerosol Inhaler, 2 INH IH BID, #1 INHALER Prov:TAN SMALL MD 05/11/18 Albuterol Sulfate* (Proair HFA*) 8.5 Gm Hfa.aer.ad, 2 PUFF INH Q4, #1 INHALER Prov:HESHAM EVERETT PA-C 01/03/17 Reported Medications Hydromorphone Hcl* (Hydromorphone Hcl*) 2 Mg Tablet, 2 MG PO Q4H PRN for PAIN, TAB 05/11/18 Discontinued Reported Medications Amoxicillin* (Amoxicillin*) Unknown Strength Cap, PO TID for 7 Days, CAP 12/29/14 [Excedrin] No Conflict Check 04/01/10 Discontinued Scripts Ibuprofen* (Motrin*) 600 Mg Tab, 600 MG PO Q6, #30 TAB Prov:HESHAM EVERETT PA-C 01/03/17 Azithromycin* (Zithromax*) 250 Mg Tablet, 250 MG PO .PEPE DIRECTED, #6 TAB TAKE 500 MG (2 TABS) THE FIRST DAY THEN 250 MG (1 TAB) DAYS 2-5 Prov:HESHAM EVERETT PA-C 01/03/17 Cephalexin* (Keflex*) 500 Mg Capsule, 500 MG PO QID for 5 Days, CAP Prov:JOHAN TERAN NP 11/30/16 Sulfamethoxazole/Trimethoprim* (Bactrim Ds* Tablet) 1 Each Tablet, 1 TAB PO BID, #14 TAB Prov:PARULJOHAN Ciera PICKARD 11/30/16 Ibuprofen* (Motrin*) 600 Mg Tab, 600 MG PO Q6, #30 TAB Prov:HESHAM EVERETT PA-C 09/15/16 Hydrocodone/Acetaminophen ([place] 5-325 Tablet) 1 Each Tablet, 1 TAB PO Q6H PRN for PAIN, #20 TAB Prov:HESHAM EVERETT PA-C 09/15/16 Ondansetron Hcl* (Zofran*) 4 Mg Tab, 4 MG PO Q6H PRN for NAUSEA AND OR VOMITING, #10 TAB Prov:JOBY CHU S. 12/14/15 Hydromorphone Hcl* (Dilaudid*) 2 Mg Tablet, 2 MG PO Q4H PRN for PAIN, #14 TAB Prov:RAMILAHADWAYNE LYEL S. 12/14/15 Ondansetron Hcl* (Zofran* ODT) 4 mg -ODT Tab.disper, 4 MG PO Q8 PRN for NAUSEA AND/OR VOMITING, #30 TAB Prov:RAFAELA BENJAMIN NP 12/29/14 Hydrocodone Bit-Acetaminophen* ([place]*) 5-325 Mg Tab, 1 TAB PO Q6 PRN for PAIN, #20 TAB Prov:RAFAELA BENJAMIN NP 12/29/14 Metronidazole* (Flagyl*) 500 Mg Tablet, 500 MG PO TID for 10 Days, TAB Prov:RAFAELA BENJAMIN NP 12/29/14 Ciprofloxacin Hcl* (Ciprofloxacin Hcl*) 500 Mg Tablet, 500 MG PO BID for 10 Days, TAB Prov:RAFAELA BENJAMIN NP 12/29/14 Allergies Allergies: Coded Allergies: No Known Drug Allergies (Unverified Allergy, Mild, 05/11/18) PMhx/Soc History of Surgery: Yes (chelecystectomy, x 2 ) Anesthesia Reaction: No Hx Neurological Disorder: No Hx Respiratory Disorders: Yes (asthma, migraine) Hx Cardiac Disorders: No Hx Psychiatric Problems: No Hx Miscellaneous Medical Probl: No Hx Alcohol Use: Yes (occassional ) Hx Substance Use: Yes (crystal meth) Hx Tobacco Use: Yes Physical Exam Vitals Vital Signs Date Temp Pulse Resp B/P (MAP) Pulse Ox O2 O2 Flow FiO2 Time Delivery Rate 05/11/18 83 20 109/74 96 Room Air 05:14 (86) 05/11/18 84 18 109/74 100 Room Air 04:16 (86) 05/11/18 103 24 97 21 02:51 05/11/18 98.6 124 24 101/74 100 02:32 (83) Physical Exam Const: No acute distress. Head: Atraumatic. Eyes: Normal Conjunctiva. ENT: Normal External Ears, Nose and Mouth. Neck: Full range of motion. No meningismus. Resp: Tachypneic, bilateral expiratory wheezes Cardio: Regular tachycardic Abd: Soft, non distended, normal bowel sounds, non tender. Skin: No petechiae or rashes. Back: No midline or flank tenderness. Ext: No cyanosis, or edema. Neur: Awake and alert. No focal deficit Psych: Normal Mood and Affect. Results 24 hrs Current Medications Medications Dose Sig/Juanita Start Time Status Last (Trade) Ordered Route PRN Stop Time Admin Dose Reason Admin Sodium 1,000 ml @ Q1H STAT 05/11/18 DC 05/11/18 Chloride 1,000 mls/hr IV 02:36 05/11/18 03:05 03:35 5 mg ONCE STAT 05/11/18 DC 05/11/18 Levalbuterol INH 02:36 05/11/18 02:50 (Xopenex 02:38 Neb) Ipratropium 1 mg ONCE STAT 05/11/18 DC 05/11/18 [place] INH 02:36 05/11/18 02:50 (Atrovent 02:38 0.02% (Neb)) 125 mg ONCE STAT 05/11/18 DC 05/11/18 Methylprednis IV 02:36 05/11/18 02:54 olone Sodium 02:38 Succinate (Solu-Medrol) Procedures/[place] [id number] Radiology Main Line: [phone] DIAGNOSTIC IMAGING REPORT Patient: JERICHO WOODS : 1985 Age: 32 Sex: F MR #: [id number] DOS: 05/11/18 0237 Ordering MD: TAN SMALL MD Location: E/R Room/Bed: PROCEDURE: Single view chest. CLINICAL INDICATION: Shortness of breath TECHNIQUE: Single view of the chest was obtained COMPARISON: DR TINOCO 01/03/2017 FINDINGS: Lung volumes are diminished. There is no airspace consolidation, focal infiltrate or effusion. Cardiac silhouette and mediastinal contours are unremarkable. Regional bones appear intact. IMPRESSION: Low lung volumes, otherwise no acute findings. RPTAT: [facility] Physician Richelle Date Time Electronically viewed and signed by Physician Richelle on 05/11/2018 03:41 xB/ CC: TAN SMALL MD [phone] MEDICAL MAKING DECISION: The patient is a 32-year-old female, presenting with acute asthma exacerbation, was treated with Xopenex 5 mg and Atrovent 1 mg continuous nebulizer over 1 hour, Solu-Medrol 125 mg IV for acute asthma exacerbation with good response, is stable for outpatient follow-up The differential diagnoses considered include but are not limited to asthma, COPD, pneumonia, pulmonary embolus, pleural effusion, congestive heart failure. Departure Diagnosis: Primary Impression: Acute asthma Condition: Good Comments He was discharged with Advair, albuterol, prednisone I discussed the findings with the patient. I advised the patient to follow-up with the primary physician in about 2-3 days, sooner if needed and return if any concern. Disclaimer: Inadvertent spelling and grammatical errors are likely due to EHR/dictation software use and do not reflect on the overall quality of patient care. Also, please note that the electronic time recorded on this note does not necessarily reflect the actual time of the patient encounter. TAN SMLAL MD May 11, 2018 02:33
[2018-05-11] MEDS ORDERED: SOD CHLORIDE 0.9% 1,000 ML IV STA (02:36)
[2018-05-11] MEDS ORDERED: METHYLPREDNISOLONE 125 MG INJ IV STA (02:36)
[2018-05-11] MEDS ORDERED: IPRATROPIUM (NEB) 0.5 MG/2.5 ML AMP INH STA (02:36)
[2018-05-11] MEDS ORDERED: LEVALBUTEROL (NEB) 1.25 MG/0.5 ML AMP INH STA (02:36)
[2018-05-11] MEDS ORDERED: HYDR2TAB3 PO (03:45)
[2018-05-11] MEDS ORDERED: ALBU8.5H8 INH (04:45)
[2018-05-11] MEDS ORDERED: FLUT12HF IH (04:45)
[2018-05-11] MEDS ORDERED: PRED20TA PO (04:58)
[2018-05-11 05:14] VITALS: BP 109/74; PULSE 83; RESP 20
== END 2018-05-11 05:25 | disposition home or self-care (01) ==
LOC: E/R 02:26
DX: J45.901 Unspecified asthma with (acute) exacerbation (principal); Z87.891 Personal history of nicotine dependence
CPT/HCPCS: 71045; 94644; 96374; J2930; J7030; Z7502; Z7610

== ENCOUNTER 2018-08-26 00:09 | Emergency (ER) | payer OTHER ==
[~2018-08-26] VITALS: Ht 149.9 cm; Wt 94.7 kg
[~2018-08-26 00:09] MED LIST changes: +AMOX1TAB10 PO; -AMOX500C2 PO; -AZIT250T PO; -CEPH-443 PO; -CIPR500T4 PO; -EXCEDRIN; +FLUT12HF IH; -HYDR-3498 PO; +HYDR2TAB3 PO; -HYDR2TAB36 PO; -METR500T PO; -ONDA4TAB13 PO; -ONDA4TAB35 PO; +PRED20TA PO; -SULF1TAB31 PO
[2018-08-26 00:22] VITALS: Ht 149.9 cm; Wt 94.7 kg
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
[2018-08-26] MEDS ORDERED: BACITRACIN 0.9 GM OINT TOP ONE (03:00)
[2018-08-26 04:00] VITALS: BP 121/87; PULSE 67; RESP 18
== END 2018-08-26 04:03 | disposition home or self-care (01) ==
LOC: FTE 00:09
DX: L03.113 Cellulitis of right upper limb (principal); J45.909 Unspecified asthma, uncomplicated; F17.210 Nicotine dependence, cigarettes, uncomplicated

== ENCOUNTER 2018-08-31 13:48 | Emergency (ER) | payer OTHER ==
[~2018-08-31] VITALS: Ht 149.9 cm; Wt 95.5 kg
[~2018-08-31 13:48] MED LIST changes: -HYDR-4011 PO
[2018-08-31 13:51] VITALS: BP 125/61; PULSE 130; RESP 20; Ht 149.9 cm; Wt 95.5 kg
[2018-08-31] MEDS ORDERED: HYDR-4011 PO (14:12)
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
== END 2018-08-31 14:14 | disposition home or self-care (01) ==
LOC: E/R 13:48
DX: L08.9 Local infection of the skin and subcutaneous tissue, unspecified (principal); J45.909 Unspecified asthma, uncomplicated; Z87.891 Personal history of nicotine dependence
CPT/HCPCS: 99283